=== PATIENT | female | born 1940 | race Asian ===

== ENCOUNTER 2019-01-23 14:07 | Inpatient (IN) | payer MEDICARE, MEDICAID ==
[~2019-01-23] VITALS: Ht 152.4 cm; Wt 44.9 kg
[2019-01-23] MEDS ORDERED: DONE10TA11 PO (14:27)
[2019-01-23] MEDS ORDERED: ROSU10TA2 PO (14:27)
[2019-01-23] MEDS ORDERED: HYDR-4077 PO (14:27)
[2019-01-23] MEDS ORDERED: AMLO10TA4 PO (14:27)
[2019-01-23] MEDS ORDERED: DIVA500T2 PO (14:27)
[2019-01-23] MEDS ORDERED: CHOL200026 PO (14:27)
[2019-01-23] MEDS ORDERED: CRAN450C PO (14:27)
[2019-01-23] MEDS ORDERED: DOCU-141 PO (14:27)
[2019-01-23] MEDS ORDERED: SERT25TA PO (14:27)
[2019-01-23] MEDS ORDERED: TYL2T PO (14:27)
[2019-01-23] MEDS ORDERED: PROT946L PO (14:27)
[2019-01-23] MEDS ORDERED: MAGN400O6 PO (14:27)
[2019-01-23] MEDS ORDERED: QUET25TA PO ×2 (14:27)
[2019-01-23] MEDS ORDERED: LORAZEPAM INJ 2 MG/ML VIAL IM ONE (14:30)
--- NOTE | 2019-01-23 14:34 | NUR ---
PT BIB PA WITH A C/O AGGITATION AND AGGRESIVE BEHAVIOR TOWARD STAFF AT SNF. PT SPEAKS FRENCH AND SPEAKS BURUNDIAN. PT APPEARS MANIC. PT IS SPEAKING IN BURUNDIAN AND SCREAMS IN FRENCH AND THEN LAUGHS. PT IS VERY LOUD WHEN SHE SPEAKS AND SCREAMS. PT AMBULATED TO THE BATHROOM WITH ASSISTANCE AND A URINE SAMPLE WAS OBTAINED. PT APPEARS PLEASANT AND IS COOPERATIVE. PT WAS TAKEN TO ER 14 AND THERE IS A SITTER AT THE BEDSIDE.
[2019-01-23] MEDS ORDERED: LORAZEPAM INJ 2 MG/ML VIAL ONE (14:41)
[2019-01-23 14:45] LABS: APPEARANCE,URINE Clear (CLEAR); BILIRUBIN,URINE Negative (NEGATIVE); BLOOD, URINE Negative Ery/uL (NEGATIVE); COLOR,URINE Yellow (YELLOW); KETONES,URINE Negative (NEGATIVE); LEUKOCYTE ESTERASE ,URINE Small (NEGATIVE); NITRITE, URINE Negative (NEGATIVE); PROTEIN,URINE Negative (NEGATIVE); UGLUCOSE Negative (NEGATIVE); UROBILINOGEN,URINE 0.2 EU/dL (0.2)
[2019-01-23 14:45] LABS: BASOPHILS # (AUTO) 0.1 /CMM (0.0-0.2); BASOPHILS % (AUTO) 2.4 % (0.0-2.0); EOSINOPHILS % (AUTO) 3.7 % (0.0-6.0); HEMATOCRIT 35 % (33-45); HEMOGLOBIN 11.1 g/dL (11.5-14.8); LYMPHOCYTES # (AUTO) 1.1 /CMM (0.8-4.8); LYMPHOCYTES % (AUTO) 29.2 % (20.0-44.0); MEAN CORPUSCULAR HGB CONC 32 g/dl (31.0-36.0); MEAN CORPUSCULAR VOLUME 71 fL (82-100); MONOCYTES # (AUTO) 0.3 /CMM (0.1-1.30); MONOCYTES % (AUTO) 9.1 % (2.0-12.0); NEUTROPHILS % (AUTO) 55.6 % (43.0-81.0); PLATELET COUNT (AUTO) 187 /CMM (150-450); RED BLOOD CELL COUNT(AUTO) 4.89 MIL/uL (4.0-5.2); WHITE BLOOD COUNT (AUTO) 3.6 K/uL (4.3-11.0)
[2019-01-23 14:49] LABS: BACTERIA,URINE Few /HPF (None Seen); RBC,URINE 0-2 /HPF (0-2); SQUAMOUS EPITHELIAL CELL,UR Few /HPF (None Seen)
--- NOTE | 2019-01-23 14:50 | NUR ---
PT WANTS TO USE THE BATHROOM. PT WAS ASSISTED TO THE BATHROOM BY MARIEL MORAN.
--- NOTE | 2019-01-23 14:50 | NUR ---
PT REC'D MEDICATION ORDERED.
[2019-01-23 14:52] LABS: CARBON DIOXIDE 27 mmol/L (21-32); CHLORIDE 106 mmol/L (98-107); CREATININE 0.7 mg/dL (0.6-1.3); GLUCOSE 87 mg/dL (74-106); POTASSIUM 4.4 mmol/L (3.5-5.1); SODIUM SERUM 142 mmol/L (136-145); UREA NITROGEN, BLOOD 19 mg/dL (7-18)
[2019-01-23 14:58] LABS: ALANINE AMINOTRANSFERASE 15 U/L (12-78); ALBUMIN 3.4 g/dL (3.4-5.0); ALKALINE PHOSPHATASE 93 U/L (46-116); ASPARTATE AMINOTRANSFERASE 13 U/L (15-37); BILIRUBIN,TOTAL 0.2 mg/dL (0.2-1.0); LIPASE 303 U/L (73-393)
--- NOTE | 2019-01-23 14:58 | NUR ---
PT RETURNED TO BED #14.
[2019-01-23 15:06] LABS: CALCIUM, SERUM 8.7 mg/dL (8.5-10.1)
--- NOTE | 2019-01-23 15:10 | NUR ---
PT STATED THAT SHE HAS TO USE THE BATHROOM. PT WAS ASSISTED ONCE MORE AND RETURNED. PT WAS ASSISTED BACK TO BED.
[2019-01-23 15:42] LABS: EOSINOPHILS % (MANUAL) 1 % (0-4); LYMPHOCYTES % (MANUAL) 16 % (16-48); MONOCYTES % (MANUAL) 3 % (0-11.0); NEUTROPHILS % (MANUAL) 80 (42-76)
--- NOTE | 2019-01-23 16:30 | NUR ---
PT THINKS THAT HER FAMILY IS HERE AND SHE WANTS THEM TO COME IN. PT WAS TOLD THAT THE FAMILY IS NOT HERE AND WILL BE LET IN ONCE THEY ARRIVE. PT IS ALSO [place] IN THE LT EAR. PT IS ON THE MONITOR AND CONTINUOUS PULSE OX. THE TV WAS TURNED ON AND A [employer] STATION WAS ON FOR THE PT. PT APPEARS TO BE RELAXING.
--- NOTE | 2019-01-23 16:35 | NUR ---
PT IS SCREAMING THAT SHE NEEDS TO USE THE BATHROOM. PT WAS ASSISTED BY MARIEL MORAN TO THE BATHROOM.
--- NOTE | 2019-01-23 16:51 | NUR ---
PT IS INTERMITTENTLY YELLING OUT IN TRISTANIAN. PT APPEARS TO BE WATCHING TRISTANIAN TV AND APPEARS COMFORTABLE. WILL CONTINUE TO MONITOR THE PT.
--- NOTE | 2019-01-23 17:39 | NUR ---
PT WANTS ME TO CALL NAHED KIMBALL, HER SON AT
--- NOTE | 2019-01-23 18:15 | NUR ---
PT IS SCREAMING FOR A PHONE. PT WANTS TO CALL FAMILY IN [place]. PT WAS TOLD THAT WE ARE NOT ABLE TO CALL THEM AT THIS TIME. ADONAY HERRON IS ARRIVED AND IS REVIEWING THE CHART.
--- NOTE | 2019-01-23 18:30 | NUR ---
PT URINATED ON HERSELF AND IS BEING CLEANED. SOILED CLOTHING WAS REMOVED AND DIAPER AND GOWN APPLIED BY SITTER.
--- NOTE | 2019-01-23 18:46 | NUR ---
CALLING REPORT TO [facility].
--- NOTE | 2019-01-23 18:47 | NUR ---
PT IS BEING PLACED ON A 5150 FOR GD AND DTO.
--- NOTE | 2019-01-23 18:49 | NUR ---
HOLDING FOR REPORT TO [facility]
--- NOTE | 2019-01-23 18:50 | NUR ---
REPORT GIVEN TO JACOBO MARTINEZ
--- NOTE | 2019-01-23 19:42 | NUR ---
PT D/C STABLE WITH 1:1 SITTER.
--- NOTE | 2019-01-23 19:45 | NUR ---
Admitted a 78 y/o , female from [facility]. Patient on 5150 hold, c/o increase confusion, agitation and disruptive behavior. Upon face to face evaluation, patient presents as alert and oriented x 1, confused, anxious, irritable, disorganized, loud and cooperative. Patient arrived via wheelchair with 1 persons assist. Patient assisted to the room, changed to clean gown. Skin and body assessment done. Pictures taken and placed in chart. Patient has difficulty walking, PT eval triggered. Explained the paper works and patient signed the consents. Informed of visiting hours and unit policies. Belongings and contraband checked. Q15 min checks initiated. Care plan started. Vital signs checked and recorded. Patient's rights discussed, guide to prescription meds handbook provided. Patient advised of the hold. MRSA specimen collected in the ER. Notified Dr. Doty of the admission. Notified Marquita (daughter of the admission). Notified Dr. Julio for med recon. Will monitor patient for mood, safety and behavior. Will endorse to the day shift.
[2019-01-23] MEDS ORDERED: MAGNESIUM HYDROXIDE 30 ML UDC PO PRN ×2 (20:00→22:00)
[2019-01-23] MEDS ORDERED: LORAZEPAM 0.5 MG TABLET PO PRN (20:00)
[2019-01-23] MEDS ORDERED: MAG HYDROX/AL HYDROX/SIMETH 30 ML UDC PO PRN (20:00)
[2019-01-23] MEDS ORDERED: ACETAMINOPHEN 325 MG TABLET PO PRN ×2 (20:00→22:00)
[2019-01-23 20:03] VITALS: BP 153/74
[2019-01-23] MEDS ORDERED: ATORVASTATIN 40 MG TABLET PO SCH (22:00)
[2019-01-23] MEDS: hydrALAZINE HCL 50 MG TABLET PO SCH (22:24)
[2019-01-24 01:20] VITALS: BP 150/83
[2019-01-24] MEDS: TEMAZEPAM 7.5 MG CAPSULE PO PRN ×2 (01:47→21:53)
[2019-01-24] MEDS ORDERED: LORAZEPAM 0.5 MG TABLET ONE (05:55)
--- NOTE | 2019-01-24 06:10 | NUR ---
PATIENT WAS PLACED ON 1:1 SITTER FOR SAFETY.PATIENT THROWING HERSELF ON THE FLOOR,RESTLESS,ANXIOUS,NOT FOLLOWING DIRECTIONS.PATIENT COMBATIVE AND AGGRESSIVE TOWARDS STAFF,FLAILING HER ARMS TOWARDS STAFF.ANTIANXIETY PO MEDICATION WAS GIVEN.WILL CONTINUE TO MONITOR Q15 MIN ROUNDS FOR SAFETY.
--- NOTE | 2019-01-24 06:25 | NUR ---
GPS RN NOTE: ATIVAN 0.5MG PO GIVEN FOR ANXIETY M/B INCREASED AGITATION, COMBATIVE, CONFUSION, SCREAMING, YELLING, SITTING AND CRAWLING ON THE FLOOR, DISORGANIZED, IRRITABLE, WANTS TO CALL THE MULTIPLE TIMES. REDIRECTED THE PATIENT, REALITY ORIENTATION PROVIDED. SPOKE TO THE DAUGHTER, PER DAUGHTER, THE PATIENT 4 YEARS AGO, THEY ARE AWARE OF THE BEHAVIOR OF THE PATIENT, THEY DID NOT BRING THE HEARING AID BECAUSE, PER DAUGHTER, PATIENT ALWAYS LOOSE IT. WILL CONTINUE TO MONITOR [id number] FOR SAFETY
[2019-01-24 08:00] VITALS: BP 150/63
[2019-01-24] MEDS: DOCUSATE SODIUM 100 MG CAPSULE PO SCH (08:50)
[2019-01-24] MEDS: AMLODIPINE BESYLATE 10 MG TABLET PO SCH (08:50)
[2019-01-24] MEDS: CHOLECALCIFEROL 1,000 UNIT TABLET (VIT D3) PO SCH (08:50)
[2019-01-24] MEDS: hydrALAZINE HCL 50 MG TABLET PO SCH ×3 (08:51→17:35)
[2019-01-24] MEDS ORDERED: CRANBERRY EXT/C/L. SPOROGENES 405 MG/TAB TABLET PO SCH (09:00)
[2019-01-24] MEDS: PROSOURCE / PROSTAT (PYXIS) 30 ML UDC PO SCH (10:22)
[2019-01-24] MEDS: LORAZEPAM 1 MG TABLET PO PRN (11:47)
--- NOTE | 2019-01-24 11:48 | NUR ---
RN NOTE:MEDICATED WITH ATIVAN 0.5MG PO X1 FOR ANXIETY AND AGITATION WILL CONTINUE TO MONITOR .
--- NOTE | 2019-01-24 12:50 | NUR ---
SW contacted [facility] Address: [address] [place] [address] and spoke with Tristan, fleet coordinator who stated pt is able to return once stable for discharge.
--- NOTE | 2019-01-24 13:11 | NUR ---
SW attempted to contact pts daughter Marquita Flower [phone] for collateral information and treatment planning. SW left a voicemail for callback.
--- NOTE | 2019-01-24 13:54 | NUR ---
SW contact pts daughter Marquita Flower [phone] for collateral information and treatment planning. Daughter agrees with medication stabilization and treatment. Daughter also wishes for pt to return to [facility].
[2019-01-24] MEDS: OLANZAPINE 2.5 MG TABLET PO SCH ×2 (14:43→17:37)
[2019-01-24 15:04] LABS: CHOLESTEROL 143 mg/dL (<200); HDL CHOLESTEROL 65 mg/dL (40-60); LDL 64 mg/dL (0-99); TRIGLYCERIDES 93 mg/dL (30-150)
[2019-01-24 15:08] LABS: CREATININE 0.7 mg/dL (0.6-1.3)
[2019-01-24 16:05] VITALS: BP 150/69
[2019-01-24 20:27] VITALS: BP 122/61
[2019-01-24] MEDS: ATORVASTATIN 10 MG TABLET PO SCH (21:32)
[2019-01-24] MEDS: DIVALPROEX SODIUM 125 MG CAP.SPRINK PO SCH (21:32)
[2019-01-25 08:00] VITALS: BP 109/56
[2019-01-25] MEDS: DOCUSATE SODIUM 100 MG CAPSULE PO SCH (08:43)
[2019-01-25] MEDS: CHOLECALCIFEROL 1,000 UNIT TABLET (VIT D3) PO SCH (08:43)
[2019-01-25] MEDS: OLANZAPINE 2.5 MG TABLET PO SCH ×2 (08:44→16:36)
[2019-01-25] MEDS: AMLODIPINE BESYLATE 10 MG TABLET PO SCH (08:47)
[2019-01-25] MEDS: hydrALAZINE HCL 50 MG TABLET PO SCH ×3 (08:47→16:36)
[2019-01-25] MEDS: PROSOURCE / PROSTAT (PYXIS) 30 ML UDC PO SCH (09:06)
--- NOTE | 2019-01-25 11:39 | NUR ---
SAMIA received a call from pts daughter Marquita Flower [phone] concerned regarding pts 7 day bed hold. SAMIA reassured her that if pt is here longer than 7 days [facility] will still accept pt. SAMIA explained that [facility] [place] and [facility] have a good working relationship and that pts psychiatrist Dr. Doty was also the psychiatrist at [facility] and informed her that the facility has already stated they would take pt back. Daughter was relieved and stated she will not be coming to visit pt as pt wanted to leave with her yesterday when she came to visit her. SW will continue to communicate with daughter regarding pts discharge.
--- NOTE | 2019-01-25 12:07 | NUR ---
RN NOTE: 1300 HYDRALAZINE HELD D/T BP 107/53
--- NOTE | 2019-01-25 12:09 | NUR ---
INITIAL DISCHARGE PLAN: Per daughter Marquita [phone] she wishes for pt to return to [facility] Address: [address] [place] [address] . SAMIA spoke with Tristan, in the admissions department who stated pt is able to return to the facility once stable for discharge. SAMIA will help form a safe and proper discharge in collaboration with .
[2019-01-25] MEDS: LORAZEPAM 1 MG TABLET PO PRN ×2 (13:01→20:54)
--- NOTE | 2019-01-25 13:02 | NUR ---
RN NOTE: PATIENT SCREAMING AND BANGING TABLE. UNABLE TO RE-DIRECT. PRN ATIVAN GIVEN FOR AGGRESSIVE BEHAVIOR.
--- NOTE | 2019-01-25 15:35 | NUR ---
GROUP NOTE: SW prompted pt to attend group discussing the topic of discharge planning, pt unable to participate in group due to cognitive impairment and unable to engage in conversation.
[2019-01-25 16:00] VITALS: BP 143/66
--- NOTE | 2019-01-25 19:21 | NUR ---
FOR TRANSFER TONIGHT
--- NOTE | 2019-01-25 20:12 | NUR ---
TRANSFERRED TO GPS OVERFLOW ROOM 207
--- NOTE | 2019-01-25 20:20 | NUR ---
RN GPS OVERFLOW TRANSFER NOTES PATIENT ARRIVED ON THE UNIT AT 2012 VIA GPS CHAIR. PATIENT SITTER IS MADHURI DE LA TORRE. VITALS UPON TRANSFER ARE 113/64, P83, RESP 20, TEMP 97.3, O2 SAT 95%. PATIENT IS SCREAMING. NO SIGNS OF ACUTE DISTRESS OR SOB NOTED. SAFETY PRECAUTIONS IMPLEMENTED.
--- NOTE | 2019-01-25 20:50 | NUR ---
RN NOTES ADMINISTERED ATIVAN FOR AGITATION AND ANXIETY. WILL CONTINUE TO MONITOR. SITTER AT BEDSIDE.
[2019-01-25 21:29] VITALS: BP 113/64
[2019-01-25] MEDS: DIVALPROEX SODIUM 125 MG CAP.SPRINK PO SCH (21:52)
[2019-01-25] MEDS: ATORVASTATIN 10 MG TABLET PO SCH (21:52)
--- NOTE | 2019-01-25 22:15 | NUR ---
RN NOTES PATIENT STILL AWAKE. ADMINISTERED TEMAZEPAM. WILL CONTINUE TO MONITOR. SITTER AT BEDSIDE.
[2019-01-25] MEDS: TEMAZEPAM 7.5 MG CAPSULE PO PRN (22:17)
--- NOTE | 2019-01-26 00:15 | NUR ---
RN NOTES PATIENT RESTING COMFORTABLY IN BED. PATIENT ASLEEP NOW. MADHURI DE LA TORRE IS THE SITTER OVERLOOKING THE PATIENT.
--- NOTE | 2019-01-26 06:40 | NUR ---
RN NOTES PATIENT WAS DELIBERATELY LYING DOWN ON THE FLOOR. FOLLOWED BY YELLING, SCREAMING. 4 WITNESSES, MYSELF, KAITLIN, PASTORA, BRITT. NO INJURIES NOTED. WE HELPED PATIENT TO GPS CHAIR. WILL CONTINUE TO MONITOR.
--- NOTE | 2019-01-26 07:00 | NUR ---
RN CLOSING NOTES PATIENT RESTING COMFORTABLY IN BED. BRITT OVERLOOKING PATIENT FOR SAFETY. PRIOR TO SLEEPING PATIENT WAS SCREAMING, YELLING. PATIENT COMPLIANT WITH MEDS. SAFETY PRECAUTIONS IMPLEMENTED; CALL LIGHT WITHIN REACH, BED LOW, BED LOCKED, SIDE RAILS UP X2. CLOSELY MONITORED FOR SAFETY. WILL ENDORSE TO AM SHIFT FOR CONTINUITY OF CARE.
--- NOTE | 2019-01-26 07:40 | NUR ---
GPS OV RN NOTES PATIENT RECEIVED RESTING INSIDE ROOM. AWAKE, ALERT AND ORIENTED TO SELF. VERBALLY RESPONSIVE AND RESPONDS TO VERBAL AND TACTILE STIMULI. NO ACUTE DISTRESS NOTED. SITTER AT BEDSIDE. WILL CONTINUE TO MONITOR. BED LOCKED AND IN LOW POSITION. BILATERAL UPPER SIDE RAILS UP AND LOCKED
[2019-01-26 08:20] VITALS: BP 151/75
[2019-01-26] MEDS: CHOLECALCIFEROL 1,000 UNIT TABLET (VIT D3) PO SCH (08:59)
[2019-01-26] MEDS: PROSOURCE / PROSTAT (PYXIS) 30 ML UDC PO SCH (08:59)
[2019-01-26] MEDS: OLANZAPINE 2.5 MG TABLET PO SCH ×3 (08:59→16:36)
[2019-01-26] MEDS: hydrALAZINE HCL 50 MG TABLET PO SCH ×3 (08:59→16:36)
[2019-01-26] MEDS: DOCUSATE SODIUM 100 MG CAPSULE PO SCH (09:00)
[2019-01-26] MEDS: AMLODIPINE BESYLATE 10 MG TABLET PO SCH (09:00)
[2019-01-26] MEDS: LORAZEPAM 1 MG TABLET PO PRN ×2 (09:16→16:49)
[2019-01-26 16:15] VITALS: BP 152/69
--- NOTE | 2019-01-26 18:56 | NUR ---
GPS OVERFLOW RN NOTES PATIENT RESTING INSIDE ROOM. AWAKE, ALERT AND ORIENTED 1-2, VERBALLY RESPONSIVE AND RESPONDS TO VERBAL AND TACTILE STIMULI. CONTINUE TO NOTE WITH EPISODES OF YELLING AND SCREAMING. PATIENT PROVIDED WITH CALM, SAFE, HAZARD-FREE ENVIRONMENT. ASSISTED PATIENT WITH ADLS NEEDED. PATIENT KEPT CLEAN, DRY AND COMFORTABLE. SITTER AT BEDSIDE. WILL ENDORSE TO INCOMING SHIFT FOR BEBETO. BED LOCKED AND IN LOW POSITION. BILATERAL UPPER SIDE RAILS UP AND LOCKED
--- NOTE | 2019-01-26 19:25 | NUR ---
GPS OVERFLOW- RN OPEN NOTES RECEIVED PATIENT PATIENT AWAKE, ALERT AND ORIENTED X 2, CONFUSED, DISORGANIZED, AND ANXIOUS. VERBALLY RESPONSIVE AND RESPONDS TO VERBAL AND TACTILE STIMULI. NO ACUTE DISTRESS NOTED. DENIES ANY PAIN OR DISCOMFORT. PATIENT ASSISTED NEEDED. SITTER AT BEDSIDE. WILL CONTINUE TO MONITOR.
[2019-01-26] MEDS: ATORVASTATIN 10 MG TABLET PO SCH (21:31)
[2019-01-26] MEDS: DIVALPROEX SODIUM 125 MG CAP.SPRINK PO SCH (21:31)
[2019-01-27 03:40] VITALS: BP 147/75
--- NOTE | 2019-01-27 06:49 | NUR ---
GPS OVERFLOW- RN CLOSING NOTES PATIENT AWAKE, ALERT AND ORIENTED X 2, CONFUSED, DISORGANIZED, AND ANXIOUS. VERBALLY RESPONSIVE AND RESPONDS TO VERBAL AND TACTILE STIMULI. NO ACUTE DISTRESS NOTED. DENIES ANY PAIN OR DISCOMFORT. PATIENT ASSISTED WITH ADL'S NEEDED. NO SIGNIFICANT CHANGES THROUGH THE NIGHT. PATIENT DID NOT SLEEP BUT REMAINED CALM AND COOPERATIVE THROUGH THE NIGHT. NO EPISODES OF YELLING AND SCREAMING NOTED SINCE BEGINNING OF SHIFT. SITTER AT BEDSIDE. SAFETY PRECAUTIONS IN PLACE. WILL ENDORSE TO AM SHIFT FOR BEBETO.
--- NOTE | 2019-01-27 07:59 | NUR ---
GPS OVERFLOW- RN CLOSING NOTES PATIENT AWAKE, ALERT AND ORIENTED X 2, CONFUSED, DISORGANIZED, AND ANXIOUS. SITTER AT BEDSIDE. VERBALLY RESPONSIVE AND RESPONDS TO VERBAL AND TACTILE STIMULI. NO APPARENT S/S OF PAIN, DISTRESS OR SOB. PER BUSINESS INTERN NURSE PATIENT DID NOT SLEEP BUT REMAINED CALM AND COOPERATIVE THROUGH THE NIGHT. SAFETY PRECAUTIONS IN PLACE. Q15MIN SAFETY CHECKS. WILL CONTINUE TO MONITOR. Addendum: 01/27/19 at 0803 by MENDOZA MATHIS RN RN OPENING NOTES
[2019-01-27 08:07] VITALS: BP 142/79
[2019-01-27] MEDS: PROSOURCE / PROSTAT (PYXIS) 30 ML UDC PO SCH (08:28)
[2019-01-27] MEDS: hydrALAZINE HCL 50 MG TABLET PO SCH ×3 (08:29→17:00)
[2019-01-27] MEDS: OLANZAPINE 2.5 MG TABLET PO SCH ×3 (08:29→16:49)
[2019-01-27] MEDS: AMLODIPINE BESYLATE 10 MG TABLET PO SCH (08:29)
[2019-01-27] MEDS: CHOLECALCIFEROL 1,000 UNIT TABLET (VIT D3) PO SCH (08:29)
[2019-01-27] MEDS: DOCUSATE SODIUM 100 MG CAPSULE PO SCH (08:29)
[2019-01-27] MEDS: LORAZEPAM 1 MG TABLET PO PRN (09:51)
--- NOTE | 2019-01-27 18:48 | NUR ---
GPS OVERFLOW- RN CLOSING NOTES PATIENT AWAKE, ALERT AND ORIENTED X 2, CONFUSED, DISORGANIZED, AND ANXIOUS. SITTER AT BEDSIDE. VERBALLY RESPONSIVE AND RESPONDS TO VERBAL AND TACTILE STIMULI. NO APPARENT S/S OF PAIN, DISTRESS OR SOB. ALL PATIENT NEEDS MET DURING SHIFT. SAFETY PRECAUTIONS IN PLACE. Q15MIN SAFETY CHECKS. WILL ENDORSE TO PI/SENIOR RESEARCH ASSOCIATE NURSE FOR CONTINUITY OF CARE.
--- NOTE | 2019-01-27 19:20 | NUR ---
RN INITIAL NOTES: PATIENT ASLEEP, RESPONDS TO VERBAL AND TACTILE STIMULI. PER REPORT PT IS ALERT AND ORIENTED X 2, CONFUSED, DISORGANIZED, AND ANXIOUS. SITTER AT BEDSIDE. NO APPARENT S/S OF PAIN, DISTRESS OR SOB. APPEARS CALM AND COMFORTABLE. SAFETY PRECAUTIONS FOR FALL INITIATED, BED IN LOWEST POSITION, SIDE RAILS UP X2 FOR SAFETY. WILL CONTINUE MONITORING PT [id number] FOR SAFETY AND ANY CHANGES OF BEHAVIOR.
[2019-01-27 20:00] VITALS: BP 104/58
--- NOTE | 2019-01-27 20:52 | NUR ---
RN NOTES: PSYCH MD CURRENTLY IN THE UNIT, GIVEN UPDATE TO MD REGARDING PT'S BEHAVIOR DURING THE DAY WHEN AWAKE. PT SLEEPING AT THE MOMENT.
[2019-01-27] MEDS: ATORVASTATIN 10 MG TABLET PO SCH (21:36)
[2019-01-27] MEDS: DIVALPROEX SODIUM 125 MG CAP.SPRINK PO SCH (21:36)
--- NOTE | 2019-01-27 21:36 | NUR ---
RN NOTES: ALL DUE MEDS ADMINISTERED, ASPIRATION PRECAUTIONS INITIATED.
--- NOTE | 2019-01-28 06:53 | NUR ---
RN CLOSING NOTES: PT REMAINS CALM AND COOPERATIVE THROUGHOUT THE NIGHT, MEDICATION COMPLIANT, ABLE TO AMBULATE WITH ASSISTANCE TO BATHROOM, ATE 50% OF SNACK, ABLE TO MAKE HER NEEDS KNOWN. OBTAINED A TOTAL OF 10HRS OF SLEEP, WITHOUT HELP OF PRN SLEEPING PILL. SITTER REMAINS AT BEDSIDE. SAFETY PRECAUTIONS FOR FALL REMAINS ENGAGED, SIDE RAILS UP X 2 FOR SAFETY, WILL ENDORSE TO DAY RN FOR CONTINUITY OF CARE.
--- NOTE | 2019-01-28 07:49 | NUR ---
GPS OVERFLOW- RN OPENING NOTES PATIENT AWAKE, ALERT AND ORIENTED X 2, CONFUSED, DISORGANIZED, AND ANXIOUS. SITTER AT BEDSIDE. VERBALLY RESPONSIVE AND RESPONDS TO VERBAL AND TACTILE STIMULI. NO APPARENT S/S OF PAIN, DISTRESS OR SOB. PER DIAGNOSTIC ASSISTANT NURSE PATIENT SLEPT WELL, WAS CALM AND COOPERATIVE THROUGH THE NIGHT. SAFETY PRECAUTIONS IN PLACE. Q15MIN SAFETY CHECKS. WILL CONTINUE TO MONITOR.
[2019-01-28 08:00] VITALS: BP 129/75
[2019-01-28] MEDS: OLANZAPINE 2.5 MG TABLET PO SCH ×3 (08:17→16:19)
[2019-01-28] MEDS: CHOLECALCIFEROL 1,000 UNIT TABLET (VIT D3) PO SCH (08:17)
[2019-01-28] MEDS: DOCUSATE SODIUM 100 MG CAPSULE PO SCH (08:17)
[2019-01-28] MEDS: PROSOURCE / PROSTAT (PYXIS) 30 ML UDC PO SCH (08:17)
[2019-01-28] MEDS: AMLODIPINE BESYLATE 10 MG TABLET PO SCH (08:17)
[2019-01-28] MEDS: hydrALAZINE HCL 50 MG TABLET PO SCH ×3 (08:18→16:19)
[2019-01-28 15:50] VITALS: BP 122/48
[2019-01-28] MEDS: LORAZEPAM 1 MG TABLET PO PRN (17:15)
--- NOTE | 2019-01-28 17:20 | NUR ---
RN NOTES PT UNCONTROLLABLY YELLING. ADMINISTERED PRN ATIVAN 0.5MG. WILL CONTINUE TO MONITOR.
--- NOTE | 2019-01-28 18:11 | NUR ---
GPS OVERFLOW- RN CLOSING NOTES PATIENT AWAKE, ALERT AND ORIENTED X 2, CONFUSED, DISORGANIZED, ANXIOUS AND AGITATED. SITTER AT BEDSIDE. PRN ATIVAN GIVEN AT 1517, PT CONTINUES TO BE AGITATED. PT VERBALLY RESPONSIVE AND RESPONDS TO VERBAL AND TACTILE STIMULI. NO APPARENT S/S OF PAIN OR SOB. ALL PATIENT NEEDS MET DURING SHIFT. SAFETY PRECAUTIONS IN PLACE. Q15MIN SAFETY CHECKS. WILL ENDORSE TO SHOT POLISHER AND INSPECTOR NURSE FOR CONTINUITY OF CARE.
[2019-01-28] MEDS: TEMAZEPAM 7.5 MG CAPSULE PO PRN (21:06)
[2019-01-28] MEDS: DIVALPROEX SODIUM 125 MG CAP.SPRINK PO SCH (21:06)
[2019-01-28] MEDS: ATORVASTATIN 10 MG TABLET PO SCH (21:06)
[2019-01-28 21:25] VITALS: BP 154/54
--- NOTE | 2019-01-28 21:25 | NUR ---
GPS/DOG TRACK KENNEL MANAGER NOTE RECEIVED PATIETN FROM GPS OVERFLOW FROM MED SURG, PATIENT ALERT, ORIENTED X2 ABLE TO VERBALIZE NEEDS AND REQUESTED FOR SOME SNACKS, RESPIRATIONS EVEN AND UNLABORED, NO S/S OF BEHAVIOR , ABLE TO COOPERATE AND PARTICIPATE WITH CARE. NO SKIN ISSUES, ABLE TO AMBULATE WITH SUPERVISION. OFFERED AND PROVIDE FLUIDS, WILL MONITOR FOR ANY CHANGES. BELONGINGS CHECK, WILL MONITOR SLEEP AND ANY OTHER CHANGES. RECEIVED ENDORSEMENT FROM JACOBO GERMAN FOR BEBETO.
--- NOTE | 2019-01-28 21:32 | NUR ---
GPS RN NOTES Moved patient to GPS 215-2 via bed. Patient has no complaints made at this time. VSS. Bedside report given JACOBO Ledezma.
--- NOTE | 2019-01-29 04:01 | NUR ---
GPS/RN NOTES PATIENT MONITORED FOR SAFETY, ASSISTED BACK TO BED AND REORIENTED .
[2019-01-29] MEDS: LORAZEPAM 1 MG TABLET PO PRN ×2 (04:21→10:26)
--- NOTE | 2019-01-29 04:22 | NUR ---
gps/rn notes PATIENT UNABLE TO RELAX. TALKING TO SELF IN LOUD VOICE, UNABLE TO SIT STILL, REQUIRE SUPERVISION, CONSTANT PACING, WILL ADMINISTER ATIVAN 0.5 MG AND MONITOR EFFECTIVENESS.
--- NOTE | 2019-01-29 05:29 | NUR ---
GPS/RN NOTES PATIENT REQUIRING EXTENSIVE SUPERVISION PATIENT BEHAVIOR COMBATIVE TO CAREGIVER WHEN REDIRECTED BACK TO BED.
[2019-01-29 08:00] VITALS: BP 117/62
[2019-01-29] MEDS: hydrALAZINE HCL 50 MG TABLET PO SCH ×3 (08:20→16:46)
[2019-01-29] MEDS: OLANZAPINE 2.5 MG TABLET PO SCH ×3 (08:20→16:46)
[2019-01-29] MEDS: DOCUSATE SODIUM 100 MG CAPSULE PO SCH (08:20)
[2019-01-29] MEDS: AMLODIPINE BESYLATE 10 MG TABLET PO SCH (08:20)
[2019-01-29] MEDS: CHOLECALCIFEROL 1,000 UNIT TABLET (VIT D3) PO SCH (08:20)
[2019-01-29] MEDS: PROSOURCE / PROSTAT (PYXIS) 30 ML UDC PO SCH (08:22)
--- NOTE | 2019-01-29 10:26 | NUR ---
GPS/RN-NOTES NOTED PATIENT WITH SADDEN SCREAMING ,TALKING LOUD IN HER LANGUAGE. STATED' I'M GOING TO CHECK OUT TODAY". REDIRECTED AND REORIENTED PATIENT. OFFERED ATIVAN AND AGREED TO TAKE. ATIVAN 0.5MG P.O GIVEN PRN ORDER. WILL CONT. MONITORING FOR SAFETY AND BEHAVIOR.
--- NOTE | 2019-01-29 11:30 | NUR ---
GPS/RN-NOTES PATIENT LAYING IN BED CALM,NO ACUTE DISTRESS NOTED.
--- NOTE | 2019-01-29 15:56 | NUR ---
Group Note: Pt attended group therapy session on 01/29/19 at 2:30pm discussing personal strengths and coping skills but was not engaged and did not participate due to her cognitive impairment.
[2019-01-29 16:00] VITALS: BP 127/63
--- NOTE | 2019-01-29 16:26 | NUR ---
SW received a call from pts daughter Marquita Flower [phone] requesting updated information, SW informed her that pt is not doing too well and has been responding to internal stimuli and constantly yelling. SW informed daughter that she would be notifying psychiatrist to adjust medication. Daughter agreed.
[2019-01-29] MEDS ORDERED: OLANZAPINE 2.5 MG TABLET PO SCH (17:00)
[2019-01-29 19:57] VITALS: BP 133/78
[2019-01-29] MEDS: ATORVASTATIN 10 MG TABLET PO SCH (21:15)
[2019-01-29] MEDS: TEMAZEPAM 7.5 MG CAPSULE PO PRN (21:16)
[2019-01-29] MEDS: DIVALPROEX SODIUM 125 MG CAP.SPRINK PO SCH (21:16)
[2019-01-30 08:00] VITALS: BP 124/68
[2019-01-30] MEDS: DOCUSATE SODIUM 100 MG CAPSULE PO SCH (08:17)
[2019-01-30] MEDS: OLANZAPINE 2.5 MG TABLET PO SCH ×3 (08:17→16:25)
[2019-01-30] MEDS: CHOLECALCIFEROL 1,000 UNIT TABLET (VIT D3) PO SCH (08:18)
[2019-01-30] MEDS: AMLODIPINE BESYLATE 10 MG TABLET PO SCH (08:18)
[2019-01-30] MEDS: hydrALAZINE HCL 50 MG TABLET PO SCH ×3 (08:18→16:50)
[2019-01-30] MEDS: PROSOURCE / PROSTAT (PYXIS) 30 ML UDC PO SCH (08:19)
--- NOTE | 2019-01-30 14:36 | NUR ---
SW received a call from pts daughter Marquita Flower [phone] requesting updated information, SW informed her that pts medication was increased and was responding well. SW also reassured daughter that facility will be accepting pt back once stable for discharge.
--- NOTE | 2019-01-30 15:34 | NUR ---
GROUP NOTE: SW prompted pt to attend group on 01/30/19 at 2:00pm discussing the topic of goal setting for while they are in the hospital and after discharge, but pt unabl to participate in group.
[2019-01-30 16:00] VITALS: BP 107/56
--- NOTE | 2019-01-30 16:51 | NUR ---
RN NOTES MEDICATION HYDRAZALINE HELD DUE TO BLOOD PRESSURE OF 107/56. PATIENT REMAINS IN STABLE CONDITION. WILL CONTINUE TO MONITOR.
[2019-01-30 20:22] VITALS: BP 130/46
[2019-01-30] MEDS: DIVALPROEX SODIUM 125 MG CAP.SPRINK PO SCH (21:27)
[2019-01-30] MEDS: TEMAZEPAM 7.5 MG CAPSULE PO PRN (21:27)
[2019-01-30] MEDS: ATORVASTATIN 10 MG TABLET PO SCH (21:27)
[2019-01-31 08:00] VITALS: BP 132/75
[2019-01-31] MEDS: OLANZAPINE 2.5 MG TABLET PO SCH ×3 (08:16→16:08)
[2019-01-31] MEDS: DOCUSATE SODIUM 100 MG CAPSULE PO SCH (08:16)
[2019-01-31] MEDS: CHOLECALCIFEROL 1,000 UNIT TABLET (VIT D3) PO SCH (08:16)
[2019-01-31] MEDS: hydrALAZINE HCL 50 MG TABLET PO SCH ×3 (08:17→16:08)
[2019-01-31] MEDS: PROSOURCE / PROSTAT (PYXIS) 30 ML UDC PO SCH (08:17)
[2019-01-31] MEDS: AMLODIPINE BESYLATE 10 MG TABLET PO SCH (08:17)
[2019-01-31] MEDS: LORAZEPAM 1 MG TABLET PO PRN ×2 (08:49→18:42)
--- NOTE | 2019-01-31 08:50 | NUR ---
GPS/RN-NOTES NOTED PATIENT WITH SADDEN SCREAMING ,TALKING LOUD IN HER LANGUAGE,WANDERING TO ROOM TO ROOM. REDIRECTED AND REORIENTED PATIENT. ATIVAN 0.5MG P.O GIVEN PRN ORDER. WILL CONT. MONITORING FOR SAFETY AND BEHAVIOR.
--- NOTE | 2019-01-31 09:15 | NUR ---
GPS/RN-NOTES PATIENT LAYING IN BED CALM,NO ACUTE DISTRESS NOTED.
--- NOTE | 2019-01-31 13:30 | NUR ---
GROUP NOTE: SW prompted pt to attend group on 01/31/19 at 12:30pm discussing stress management techniques for while they are in the hospital and after discharge, but pt was sleeping and not easily aroused.
[2019-01-31 16:52] VITALS: BP 101/67
--- NOTE | 2019-01-31 18:47 | NUR ---
GPS/RN-NOTES NOTED PATIENT WITH SADDEN SCREAMING ,TALKING LOUD IN HER LANGUAGE. STATED' I'M GOING HOME TODAY CALL TAXI". REDIRECTED AND REORIENTED PATIENT. . ATIVAN 0.5MG P.O GIVEN PRN ORDER. WILL CONT. MONITORING FOR SAFETY AND BEHAVIOR. WILL ENDORSE TO INCOMING NURSE FOR CONTINUITY OF CARE.
[2019-01-31 20:00] VITALS: BP 114/81
[2019-01-31] MEDS: DIVALPROEX SODIUM 125 MG CAP.SPRINK PO SCH (21:09)
[2019-01-31] MEDS: ATORVASTATIN 10 MG TABLET PO SCH (21:10)
--- NOTE | 2019-02-01 06:00 | NUR ---
PATIENT AWAKE, SLEPT POORLY LAST NIGHT. RESPIRATIONS EVEN. NO SIGNS OF PAIN NOTED. DUE MEDS GIVEN WITH NO ASE NOTED. NEEDS ATTENDED. SAFETY PRECAUTIONS AND COMFORT MEASURES IN PLACE. WILL GIVE REPORT TO DAY SHIFT FOR CONTINUITY OF CARE.
[2019-02-01 08:00] VITALS: BP 105/62
[2019-02-01] MEDS: hydrALAZINE HCL 50 MG TABLET PO SCH ×3 (08:55→17:38)
[2019-02-01] MEDS: AMLODIPINE BESYLATE 10 MG TABLET PO SCH (08:55)
[2019-02-01] MEDS: OLANZAPINE 2.5 MG TABLET PO SCH ×3 (08:57→17:38)
[2019-02-01] MEDS: DOCUSATE SODIUM 100 MG CAPSULE PO SCH (08:57)
[2019-02-01] MEDS: CHOLECALCIFEROL 1,000 UNIT TABLET (VIT D3) PO SCH (08:57)
[2019-02-01] MEDS: PROSOURCE / PROSTAT (PYXIS) 30 ML UDC PO SCH (09:02)
[2019-02-01 13:32] VITALS: BP 104/56
[2019-02-01 16:00] VITALS: BP 142/63
[2019-02-01 20:20] VITALS: BP 141/50
[2019-02-01] MEDS: DIVALPROEX SODIUM 125 MG CAP.SPRINK PO SCH (20:57)
[2019-02-01] MEDS: ATORVASTATIN 10 MG TABLET PO SCH (20:57)
[2019-02-02 08:00] VITALS: BP 134/64
[2019-02-02] MEDS: DOCUSATE SODIUM 100 MG CAPSULE PO SCH (08:18)
[2019-02-02] MEDS: CHOLECALCIFEROL 1,000 UNIT TABLET (VIT D3) PO SCH (08:19)
[2019-02-02] MEDS: AMLODIPINE BESYLATE 10 MG TABLET PO SCH (08:19)
[2019-02-02] MEDS: OLANZAPINE 2.5 MG TABLET PO SCH ×3 (08:19→16:10)
[2019-02-02] MEDS: hydrALAZINE HCL 50 MG TABLET PO SCH ×3 (08:19→16:10)
[2019-02-02] MEDS: PROSOURCE / PROSTAT (PYXIS) 30 ML UDC PO SCH (09:15)
[2019-02-02 16:00] VITALS: BP 144/84
[2019-02-02 20:00] VITALS: BP 127/59
[2019-02-02] MEDS: DIVALPROEX SODIUM 125 MG CAP.SPRINK PO SCH (21:41)
[2019-02-02] MEDS: TEMAZEPAM 7.5 MG CAPSULE PO PRN (21:41)
[2019-02-02] MEDS: ATORVASTATIN 10 MG TABLET PO SCH (21:41)
[2019-02-03 08:00] VITALS: BP 152/51
[2019-02-03] MEDS: DOCUSATE SODIUM 100 MG CAPSULE PO SCH (08:41)
[2019-02-03] MEDS: CHOLECALCIFEROL 1,000 UNIT TABLET (VIT D3) PO SCH (08:41)
[2019-02-03] MEDS: OLANZAPINE 2.5 MG TABLET PO SCH ×3 (08:41→16:50)
[2019-02-03] MEDS: hydrALAZINE HCL 50 MG TABLET PO SCH ×3 (08:41→16:51)
[2019-02-03] MEDS: AMLODIPINE BESYLATE 10 MG TABLET PO SCH (08:42)
[2019-02-03] MEDS: PROSOURCE / PROSTAT (PYXIS) 30 ML UDC PO SCH (08:42)
[2019-02-03 16:00] VITALS: BP 126/59
[2019-02-03 19:53] VITALS: BP 139/65
[2019-02-03] MEDS: DIVALPROEX SODIUM 125 MG CAP.SPRINK PO SCH (21:31)
[2019-02-03] MEDS: ATORVASTATIN 10 MG TABLET PO SCH (21:31)
[2019-02-03] MEDS: LORAZEPAM 1 MG TABLET PO PRN (21:32)
[2019-02-03] MEDS: TEMAZEPAM 7.5 MG CAPSULE PO PRN (21:32)
[2019-02-04 06:52] LABS: BASOPHILS % (AUTO) 1.1 % (0.0-2.0); EOSINOPHILS % (AUTO) 5.7 % (0.0-6.0); HEMATOCRIT 38 % (33-45); HEMOGLOBIN 12.1 g/dL (11.5-14.8); LYMPHOCYTES # (AUTO) 1.1 /CMM (0.8-4.8); LYMPHOCYTES % (AUTO) 33.8 % (20.0-44.0); MEAN CORPUSCULAR HGB CONC 31 g/dl (31.0-36.0); MEAN CORPUSCULAR VOLUME 70 fL (82-100); MONOCYTES # (AUTO) 0.4 /CMM (0.1-1.30); MONOCYTES % (AUTO) 11.8 % (2.0-12.0); NEUTROPHILS # (AUTO) 1.5 /CMM (1.8-8.9); NEUTROPHILS % (AUTO) 47.6 % (43.0-81.0); PLATELET COUNT (AUTO) 219 /CMM (150-450); RED BLOOD CELL COUNT(AUTO) 5.46 MIL/uL (4.0-5.2); WHITE BLOOD COUNT (AUTO) 3.2 K/uL (4.3-11.0)
[2019-02-04 07:01] LABS: CALCIUM, SERUM 9.1 mg/dL (8.5-10.1); CARBON DIOXIDE 28 mmol/L (21-32); CHLORIDE 104 mmol/L (98-107); CREATININE 0.7 mg/dL (0.6-1.3); GLUCOSE 93 mg/dL (74-106); POTASSIUM 3.7 mmol/L (3.5-5.1); SODIUM SERUM 140 mmol/L (136-145); UREA NITROGEN, BLOOD 16 mg/dL (7-18)
[2019-02-04 08:00] VITALS: BP 116/88
[2019-02-04] MEDS: AMLODIPINE BESYLATE 10 MG TABLET PO SCH (09:00)
[2019-02-04] MEDS: PROSOURCE / PROSTAT (PYXIS) 30 ML UDC PO SCH (09:00)
[2019-02-04] MEDS: hydrALAZINE HCL 50 MG TABLET PO SCH ×3 (09:00→17:16)
[2019-02-04] MEDS: DOCUSATE SODIUM 100 MG CAPSULE PO SCH (09:15)
[2019-02-04] MEDS: CHOLECALCIFEROL 1,000 UNIT TABLET (VIT D3) PO SCH (09:17)
[2019-02-04] MEDS: OLANZAPINE 2.5 MG TABLET PO SCH ×3 (09:17→17:16)
[2019-02-04] MEDS: LORAZEPAM 1 MG TABLET PO PRN (11:25)
--- NOTE | 2019-02-04 11:29 | NUR ---
RN NOTE:PATIENT AGITATED MEDICATED WITH ATIVAN 0.5MG X1 WILL CONTINUE TO MONITOR.
[2019-02-04 11:32] LABS: EOSINOPHILS % (MANUAL) 2 % (0-4); LYMPHOCYTES % (MANUAL) 34 % (16-48); MONOCYTES % (MANUAL) 10 % (0-11.0); NEUTROPHILS % (MANUAL) 54 (42-76)
[2019-02-04 16:00] VITALS: BP 118/73
[2019-02-04] MEDS: DIVALPROEX SODIUM 125 MG CAP.SPRINK PO SCH ×2 (17:15→21:17)
[2019-02-04 20:28] VITALS: BP 145/61
[2019-02-04] MEDS: ATORVASTATIN 10 MG TABLET PO SCH (21:17)
[2019-02-04] MEDS: TEMAZEPAM 7.5 MG CAPSULE PO PRN (21:18)
[2019-02-05 08:00] VITALS: BP 150/67
[2019-02-05] MEDS: CHOLECALCIFEROL 1,000 UNIT TABLET (VIT D3) PO SCH (09:23)
[2019-02-05] MEDS: OLANZAPINE 2.5 MG TABLET PO SCH ×3 (09:23→16:30)
[2019-02-05] MEDS: DIVALPROEX SODIUM 125 MG CAP.SPRINK PO SCH ×4 (09:23→21:39)
[2019-02-05] MEDS: DOCUSATE SODIUM 100 MG CAPSULE PO SCH (09:23)
[2019-02-05] MEDS: hydrALAZINE HCL 50 MG TABLET PO SCH ×3 (09:23→16:30)
[2019-02-05] MEDS: AMLODIPINE BESYLATE 10 MG TABLET PO SCH (09:24)
[2019-02-05] MEDS: PROSOURCE / PROSTAT (PYXIS) 30 ML UDC PO SCH (09:31)
[2019-02-05] MEDS: LORAZEPAM 1 MG TABLET PO PRN (14:25)
--- NOTE | 2019-02-05 14:25 | NUR ---
GPS/RN-NOTES NOTED PATIENT NOTED WITH SADDEN SCREAMING AND YELLING .UN ABLE TO REDIRECT PATIENT. ATIVAN 0.5MG P.O GIVEN PRN ORDER. WILL CONT. MONITORING FOR SAFETY AND BEHAVIOR.
--- NOTE | 2019-02-05 14:41 | NUR ---
GROUP NOTE: Pt unable to participate in group due to cognitive impairment and psychosis pt is not appropriate for group setting as she yells and screams and disrupts the group setting.
[2019-02-05 16:00] VITALS: BP 116/60
[2019-02-05 20:45] VITALS: BP 137/53
[2019-02-05] MEDS: ATORVASTATIN 10 MG TABLET PO SCH (21:39)
--- NOTE | 2019-02-05 22:30 | NUR ---
GPS RN NOTES: PATIENT FOUND SCREAMING ON THE FLOOR OF HER ROOM, PATIENT TALKS LIMITED MALTESE. NURSE UNABLE TO ASSESS OF ANY PAIN OR DISCOMFORT. PATIENT DOES NOT SHOW ANY FACIAL GRIMACE AT ALL. DR. VALE INFORMED OF THE INCIDENT. MIRNA CAST INFORMED WITH ORDERS TO PERFORM CT OF THE HEAD WITHOUT CONTRAST- NOTED AND CARRIED OUT. NURSE WHITE SHOE RAGGER EMELIA INFORMED. ARA NURSE ANESTHESIOLOGIST ASSISTANT INFORMED. PATIENT THEN ASSISTED TO THE GERICHAIR TO PREVENT FURTHER FALLS. WILL MONITOR PATIENT.
[2019-02-06] MEDS: TEMAZEPAM 7.5 MG CAPSULE PO PRN ×2 (00:11→21:48)
--- NOTE | 2019-02-06 00:11 | NUR ---
RN NOTES ADMINISTERED RESTORIL 7.5MG ORDERED FOR INSOMNIA, PATIENT IS RESTLESS KEEPS SAYING SHE WANTS TO SLEEP BUT THEN STATING "I CANT SLEEP" ONCE SHES ASSISTED TO HER BED. WILL CONTINUE TO MONITOR.
[2019-02-06 08:00] VITALS: BP 132/60
[2019-02-06] MEDS: CHOLECALCIFEROL 1,000 UNIT TABLET (VIT D3) PO SCH (10:13)
[2019-02-06] MEDS: AMLODIPINE BESYLATE 10 MG TABLET PO SCH (10:13)
[2019-02-06] MEDS: DOCUSATE SODIUM 100 MG CAPSULE PO SCH (10:14)
[2019-02-06] MEDS: DIVALPROEX SODIUM 125 MG CAP.SPRINK PO SCH ×4 (10:14→21:08)
[2019-02-06] MEDS: OLANZAPINE 2.5 MG TABLET PO SCH (10:14)
[2019-02-06] MEDS: hydrALAZINE HCL 50 MG TABLET PO SCH ×3 (10:15→17:08)
[2019-02-06] MEDS: PROSOURCE / PROSTAT (PYXIS) 30 ML UDC PO SCH (10:16)
[2019-02-06] MEDS: risperiDONE 1 MG TABLET PO SCH ×2 (13:13→17:09)
--- NOTE | 2019-02-06 13:25 | NUR ---
SAMIA received a call from pts daughter Marquita Flower [phone] requesting updated information, SAMIA informed her that pts medication was increased and was responding much better, SAMIA informed her that pt was not yelling or screaming and that she w Addendum: 02/06/19 at 1325 by NAYELI GRACIA ERROR
--- NOTE | 2019-02-06 13:25 | NUR ---
SW received a call from pts daughter Marquita Flower [phone] requesting updated information, SW informed her that pts medication was increased and was responding much better, SW informed her that pt was not yelling or screaming on this present day and that she has an anticipated discharge date for Tuesday02/09/19.
--- NOTE | 2019-02-06 15:51 | NUR ---
GROUP NOTE: Pt was present during group on this present day but was unable to participate in group due to cognitive impairment. Pt unable to sit in a group setting and engage in conversation.
[2019-02-06 16:00] VITALS: BP 111/70
[2019-02-06] MEDS ORDERED: OLANZAPINE 2.5 MG TABLET PO SCH (20:00)
[2019-02-06 20:30] VITALS: BP 121/64
[2019-02-06] MEDS: LORAZEPAM 1 MG TABLET PO PRN (21:08)
[2019-02-06] MEDS: ATORVASTATIN 10 MG TABLET PO SCH (21:08)
[2019-02-07] MEDS: LORAZEPAM 1 MG TABLET PO PRN ×2 (05:39→22:13)
[2019-02-07 08:00] VITALS: BP 122/63
[2019-02-07] MEDS: risperiDONE 1 MG TABLET PO SCH ×2 (08:00→12:46)
[2019-02-07] MEDS: hydrALAZINE HCL 50 MG TABLET PO SCH ×3 (09:00→17:00)
[2019-02-07] MEDS: DIVALPROEX SODIUM 125 MG CAP.SPRINK PO SCH ×3 (09:00→17:38)
[2019-02-07] MEDS: DOCUSATE SODIUM 100 MG CAPSULE PO SCH (12:43)
[2019-02-07] MEDS: PROSOURCE / PROSTAT (PYXIS) 30 ML UDC PO SCH (12:43)
[2019-02-07] MEDS: CHOLECALCIFEROL 1,000 UNIT TABLET (VIT D3) PO SCH (12:43)
[2019-02-07] MEDS: AMLODIPINE BESYLATE 10 MG TABLET PO SCH (12:44)
[2019-02-07 16:00] VITALS: BP 114/63
--- NOTE | 2019-02-07 18:53 | NUR ---
PSYCH MEDS HELD IN AM DUE TO DROWSINESS,DR. VALE INFORMED.STATES SHE WILL MAKE CHANGES IN MEDS.
[2019-02-07 20:10] VITALS: BP 117/63
[2019-02-07] MEDS: ATORVASTATIN 10 MG TABLET PO SCH (22:13)
[2019-02-07] MEDS: TEMAZEPAM 7.5 MG CAPSULE PO PRN (22:13)
[2019-02-08 08:00] VITALS: BP 135/63
[2019-02-08] MEDS: DIVALPROEX SODIUM 125 MG CAP.SPRINK PO SCH ×3 (09:00→17:46)
[2019-02-08] MEDS: CHOLECALCIFEROL 1,000 UNIT TABLET (VIT D3) PO SCH (09:00)
[2019-02-08] MEDS: hydrALAZINE HCL 50 MG TABLET PO SCH ×3 (09:01→17:46)
[2019-02-08] MEDS: risperiDONE 0.25 MG TABLET PO SCH ×2 (09:01→19:52)
[2019-02-08] MEDS: DOCUSATE SODIUM 100 MG CAPSULE PO SCH (09:01)
[2019-02-08] MEDS: PROSOURCE / PROSTAT (PYXIS) 30 ML UDC PO SCH (09:02)
[2019-02-08] MEDS: AMLODIPINE BESYLATE 10 MG TABLET PO SCH (09:02)
[2019-02-08] MEDS: ENSURE ENLIVE 237 ML LIQUID (VANILLA) PO SCH ×2 (14:16→17:46)
[2019-02-08 16:00] VITALS: BP 132/95
--- NOTE | 2019-02-08 16:23 | NUR ---
Group Note: Pt attended group therapy that took place on 02/08/19 at 2:30PM but was unable to participate due to her cognitive impairment.
--- NOTE | 2019-02-08 17:15 | NUR ---
DR. VALE IN THE UNIT AND ORDERED SOME LABS.
[2019-02-08 17:27] LABS: BASOPHILS % (AUTO) 0.1 % (0.0-2.0); EOSINOPHILS % (AUTO) 0.4 % (0.0-6.0); HEMATOCRIT 39 % (33-45); HEMOGLOBIN 12.3 g/dL (11.5-14.8); LYMPHOCYTES # (AUTO) 0.9 /CMM (0.8-4.8); LYMPHOCYTES % (AUTO) 12.1 % (20.0-44.0); MEAN CORPUSCULAR HGB CONC 31 g/dl (31.0-36.0); MEAN CORPUSCULAR VOLUME 71 fL (82-100); MONOCYTES # (AUTO) 0.6 /CMM (0.1-1.30); MONOCYTES % (AUTO) 7.1 % (2.0-12.0); NEUTROPHILS # (AUTO) 6.3 /CMM (1.8-8.9); NEUTROPHILS % (AUTO) 80.3 % (43.0-81.0); PLATELET COUNT (AUTO) 212 /CMM (150-450); RED BLOOD CELL COUNT(AUTO) 5.55 MIL/uL (4.0-5.2); WHITE BLOOD COUNT (AUTO) 7.9 K/uL (4.3-11.0)
[2019-02-08 18:08] LABS: ALANINE AMINOTRANSFERASE 15 U/L (12-78); ALBUMIN 3.5 g/dL (3.4-5.0); ALKALINE PHOSPHATASE 73 U/L (46-116); ASPARTATE AMINOTRANSFERASE 14 U/L (15-37); BILIRUBIN,TOTAL 0.2 mg/dL (0.2-1.0); CALCIUM, SERUM 9.2 mg/dL (8.5-10.1); CARBON DIOXIDE 25 mmol/L (21-32); CHLORIDE 107 mmol/L (98-107); CREATININE 0.9 mg/dL (0.6-1.3); GLUCOSE 150 mg/dL (74-106); MAGNESIUM 2.4 mg/dL (1.8-2.4); POTASSIUM 3.8 mmol/L (3.5-5.1); SODIUM SERUM 144 mmol/L (136-145); UREA NITROGEN, BLOOD 33 mg/dL (7-18)
[2019-02-08 18:29] LABS: APPEARANCE,URINE Clear (CLEAR); BILIRUBIN,URINE Negative (NEGATIVE); BLOOD, URINE Negative Ery/uL (NEGATIVE); COLOR,URINE Yellow (YELLOW); KETONES,URINE Trace (NEGATIVE); LEUKOCYTE ESTERASE ,URINE Trace (NEGATIVE); NITRITE, URINE Positive (NEGATIVE); PH,URINE 5.5 (5.0-8.0); PROTEIN,URINE Trace mg/dl (NEGATIVE); UGLUCOSE Negative (NEGATIVE); UROBILINOGEN,URINE 0.2 EU/dL (0.2)
[2019-02-08 19:37] LABS: BACTERIA,URINE 2+ /HPF (None Seen); RBC,URINE NONE SEEN /HPF (0-2); SQUAMOUS EPITHELIAL CELL,UR Few /HPF (None Seen)
[2019-02-08] MEDS: ATORVASTATIN 10 MG TABLET PO SCH (19:52)
[2019-02-08 20:00] VITALS: BP 149/99
[2019-02-08] MEDS: TEMAZEPAM 7.5 MG CAPSULE PO PRN (20:37)
[2019-02-08] MEDS: SULFAMETH/TRIMETH 800/160 MG 1 UDTAB TABLET PO SCH (20:37)
[2019-02-09 08:00] VITALS: BP 150/60
[2019-02-09] MEDS: hydrALAZINE HCL 50 MG TABLET PO SCH ×3 (08:40→16:41)
[2019-02-09] MEDS: AMLODIPINE BESYLATE 10 MG TABLET PO SCH (08:40)
[2019-02-09] MEDS: CHOLECALCIFEROL 1,000 UNIT TABLET (VIT D3) PO SCH (08:40)
[2019-02-09] MEDS: risperiDONE 0.25 MG TABLET PO SCH ×2 (08:40→21:07)
[2019-02-09] MEDS: DOCUSATE SODIUM 100 MG CAPSULE PO SCH (08:40)
[2019-02-09] MEDS: DIVALPROEX SODIUM 125 MG CAP.SPRINK PO SCH ×3 (08:40→16:40)
[2019-02-09] MEDS: SULFAMETH/TRIMETH 800/160 MG 1 UDTAB TABLET PO SCH ×2 (08:40→21:07)
[2019-02-09] MEDS: ENSURE ENLIVE 237 ML LIQUID (VANILLA) PO SCH ×2 (08:41→16:41)
[2019-02-09] MEDS: PROSOURCE / PROSTAT (PYXIS) 30 ML UDC PO SCH (08:41)
--- NOTE | 2019-02-09 09:22 | NUR ---
SW contact pts daughter Marquita Flower [phone] and informed her pt will not be discharging on this present day due to pts urine analysis coming back positive for UTI. SW informed her Psychiatrist has started pt on treatment and may possibly be discharging on Tuesday02/12/19.
[2019-02-09] MEDS: LORAZEPAM 1 MG TABLET PO PRN (12:45)
--- NOTE | 2019-02-09 14:36 | NUR ---
SW contact pts daughter Marquita Flower [phone] and left a voicemail informing her that per psychiatrist Dr. Doty pt has shown improvement and has not had any behavior disturbances and will be discharging on Tuesday02/10/19 to [facility]. SW also informed her that pt will continue UTI treatment at facility.
--- NOTE | 2019-02-09 14:41 | NUR ---
SAMIA contacted [facility] Address: [address] [place] [address] and spoke with Tristan, campus recruiting coordinator and informed him pt will be discharging tomorrow Tuesday02/09/19 and also faxed clinicals to [phone].
--- NOTE | 2019-02-09 15:04 | NUR ---
DISCHARGE NOTE: Pt discharging on Tuesday02/10/19 at 1230pm to [facility] ([facility] Address: [address] [place] [address] via [facility]. Pts daughter Marquita [phone] has been informed. Pts mood is labile with congruent affect. Pt denied visual/auditory hallucinations and denied suicidal/homicidal ideation. Pt will be under the care of Psychiatrist: Dr. Ruba Doty [address], [place] [address] [phone] and Drawing Kiln Supervisor: Dr. Jerry Mcnulty Address: [address], [place] [address] Phone: [phone]. The multidisciplinary exit care form was done, printed, signed, and given to the patient.
[2019-02-09 16:00] VITALS: BP 108/50
[2019-02-09] MEDS: busPIRone 5 MG TABLET PO SCH (16:41)
[2019-02-09 19:51] VITALS: BP 100/43
[2019-02-09 20:10] VITALS: BP 100/43
[2019-02-09] MEDS: ATORVASTATIN 10 MG TABLET PO SCH (21:07)
[2019-02-09] MEDS: TEMAZEPAM 7.5 MG CAPSULE PO PRN (23:48)
[2019-02-10 08:00] VITALS: BP 144/90
[2019-02-10] MEDS: CHOLECALCIFEROL 1,000 UNIT TABLET (VIT D3) PO SCH (08:07)
[2019-02-10] MEDS: hydrALAZINE HCL 50 MG TABLET PO SCH (08:07)
[2019-02-10] MEDS: DIVALPROEX SODIUM 125 MG CAP.SPRINK PO SCH (08:07)
[2019-02-10] MEDS: DOCUSATE SODIUM 100 MG CAPSULE PO SCH (08:07)
[2019-02-10] MEDS: risperiDONE 0.25 MG TABLET PO SCH (08:07)
[2019-02-10] MEDS: SULFAMETH/TRIMETH 800/160 MG 1 UDTAB TABLET PO SCH (08:07)
[2019-02-10 08:08] VITALS: BP 144/90
[2019-02-10] MEDS: AMLODIPINE BESYLATE 10 MG TABLET PO SCH (08:08)
[2019-02-10] MEDS: PROSOURCE / PROSTAT (PYXIS) 30 ML UDC PO SCH (08:11)
[2019-02-10] MEDS: ENSURE ENLIVE 237 ML LIQUID (VANILLA) PO SCH (08:15)
--- NOTE | 2019-02-10 08:32 | NUR ---
DR. VALE GAVE AN ORDER TO D/C HOLD AND D/C TO [facility] (), TO CONTINUE SAME MEDS INCLUDING PRN AND TO FOLLOW UP WITH PSYCH AND MEDICAL DOCTORS. DR. BUCIO MADE AWARE OF THE DISCHARGE AND RECONCILED THE MEDS. CALLED THE FACILITY AND SPOKE TO DARIUS (RN) AND SAID THAT THEY ARE ACCEPTING PT. TODAY. DAUGHTER MARIN WAS CALLED AT [phone] AND MADE AWARE OF THE DISCHARGE AND AGREED.
[2019-02-10] MEDS: busPIRone 5 MG TABLET PO SCH (12:05)
--- NOTE | 2019-02-10 12:50 | NUR ---
GPS/RN-NOTES PATIENT WAS DISCHARGE TO [facility] TODAY DR. VALE AND DR. BUCIO AWARE AND AGREES OF THE DISCHARGE WITH ORDERS. REPORT WAS GIVEN TO ISIAH ( FACILITY TRAINING AND DOCUMENTATION SPECIALIST STAFF). PATIENT DID NOT VERBALIZE SI/HI,DENIES VISUAL AUDITORY HALLUCINATIONS AT THE TIME OF DISCHARGE. PATIENT'S DTR MARIN([phone]) MADE AWARE OF THE DISCHARGE.PATIENT WAS TOUR GUIDE BY AMBULANCE VIA GURNEY WITH TWO STAFF ASSIST. PATIENT LEFT THE UNIT IN STABLE CONDITION ALERT ORIENTED X1 WITH ALL BELONGINGS.
== END 2019-02-10 12:50 | DRG 885 ==
LOC: ER 14:13 → GPS 19:27 → GPSOV2 01-25 19:39 → GPS 01-28 21:30
PROVIDERS: ADMIT Psychiatry & Neurology Psychosomatic Medicine; ATTEND Internal Medicine
DX: F25.0 Schizoaffective disorder, bipolar type (principal); F01.50 Vascular dementia, unspecified severity, without behavioral disturbance, psychotic disturbance, mood disturbance, and anxiety; N17.0 Acute kidney failure with tubular necrosis; E44.0 Moderate protein-calorie malnutrition; N39.0 Urinary tract infection, site not specified; Z68.1 Body mass index [BMI] 19.9 or less, adult; F32.9 Major depressive disorder, single episode, unspecified; E78.5 Hyperlipidemia, unspecified; D63.8 Anemia in other chronic diseases classified elsewhere; I10 Essential (primary) hypertension; M62.50 Muscle wasting and atrophy, not elsewhere classified, unspecified site; R53.1 Weakness; M85.80 Other specified disorders of bone density and structure, unspecified site; Z73.6 Limitation of activities due to disability; B96.20 Unspecified Escherichia coli [E. coli] as the cause of diseases classified elsewhere; Z16.12 Extended spectrum beta lactamase (ESBL) resistance
CPT/HCPCS: 36415; 70450-TC; 71045-TC; 80048-TC; 80053-TC; 80061-TC; 80076-TC; 80164-TC; 81000-TC; 82565-TC; 83690-TC; 83735-TC; 84484-TC; 85025-TC; 87081-TC; 87086-TC; 87186-TC; 97116-TC; 97530-TC; J2060; J7030